=== PATIENT | male | born 1985 | race Caucasian/White ===

== ENCOUNTER 2018-09-26 16:04 | Emergency (ER) | payer OTHER ==
[2018-09-26] MEDS ORDERED: BUPIVACAINE 0.5% PF 10 ML VIAL ONE (17:45)
[2018-09-26] MEDS ORDERED: LIDOCAINE 1% 20 ML MDV ONE (17:45)
[2018-09-26] MEDS ORDERED: TETANUS & DIPHTHERIA TOX,ADULT 0.5 ML VIAL ONE (17:46)
--- NOTE | 2018-09-26 18:20 | RAD REPORT ---
EXAM DESCRIPTION: RAD - Hand Left 3 View - 09/26/2018 6:10 pm CLINICAL HISTORY: finger laceration COMPARISON: <Comparisons> FINDINGS: Soft tissue laceration is seen along the second digit radial aspect near the PIP joint. No fracture or radiopaque foreign body visualized.
--- NOTE | 2018-09-26 19:05 | ER ---
Nurse's Notes [facility] Name: Tavon Johansen Age: 33 yrs Sex: Male : 1985 Arrival Date: 09/26/2018 Time: 16:06 Bed 9 Private MD: Diagnosis: Laceration without foreign body of left index finger without damage to nail Presentation: 09/26 16:18 Presenting complaint: Laceration to left index finger with pocket knife yesterday, hb still bleeding today. Transition of care: patient was not received from another setting of care. Complicating Factors: There are no complicating factors for this patient. Onset of symptoms was September 25, 2018. Risk Assessment: Do you want to hurt yourself or someone else? Patient reports no desire to harm self or others. Care prior to arrival: None. 16:18 Method Of Arrival: Ambulatory hb 16:18 Acuity: TAYLOR 4 hb 19:43 Initial Sepsis Screen: Does the patient meet any 2 criteria? No. Patient's initial aj1 sepsis screen is negative. Does the patient have a suspected source of infection? Yes: Skin breakdown/wound. Historical: - Allergies: 16:20 No Known Allergies; hb - Home Meds: 16:20 None [Active]; hb - PSHx: 16:20 foot surgery; hb - Immunization history:: Last tetanus immunization: > 10 years ago. - Social history:: Smoking status: Patient/guardian denies using tobacco. - Ebola Screening: : No symptoms or risks identified at this time. Screenin:19 Abuse screen: Denies threats or abuse. Denies injuries from another. Nutritional aj1 screening: No deficits noted. Tuberculosis screening: No symptoms or risk factors identified. 19:44 Fall Risk None identified. aj1 Assessment: 17:16 General: Appears in no apparent distress. comfortable, Behavior is calm, cooperative, aj1 appropriate for age. Pain: Complains of pain in dorsal aspect of proximal phalanx of left index finger. Neuro: Level of Consciousness is awake, alert, obeys commands, Oriented to person, place, time, situation. Cardiovascular: Patient's skin is warm and dry. Respiratory: Airway is patent Respiratory effort is even, unlabored, Respiratory pattern is. GI: No signs and/or symptoms were reported involving the gastrointestinal system. : No signs and/or symptoms were reported regarding the genitourinary system. EENT: No signs and/or symptoms were reported regarding the EENT system. Derm: Skin is pink, warm \T\ dry. normal. Musculoskeletal: No signs and/or symptoms reported regarding the musculoskeletal system. Circulation, motion, and sensation intact. Range of motion: intact in all extremities. Injury Description: Laceration sustained to dorsal aspect of proximal phalanx of left index finger is bleeding moderately, was sustained 12-24 hours ago. 18:00 Reassessment: Patient's finger is soaking in betadine, awaiting to be numbed by 1 provider. 19:15 Reassessment: Patient appears in no apparent distress at this time. No changes from aj1 previously documented assessment. Patient and/or family updated on plan of care and expected duration. Pain level reassessed. Patient is alert, oriented x 3, equal unlabored respirations, skin warm/dry/pink. Vital Signs: 16:19 BP 171 / 97; Pulse 85; Resp 16; Temp 98.2; Pulse Ox 100% on R/A; Pain 0/10; hb ED Course: 16:06 Patient arrived in ED. as 16:12 Patient's name was called from ER lobby. No response. hb 16:19 Triage completed. hb 16:19 Arm band placed on. hb 16:58 Maren Rausch, MEY is Primary Nurse. aj1 17:00 Zaki Duffy PA is PHCP. cp 17:00 Tosha Culver MD is Attending Physician. cp 17:19 Patient has correct armband on for positive identification. Bed in low position. Call aj1 light in reach. Side rails up X 1. 17:19 No provider procedures requiring assistance completed. aj1 18:10 XRAY Hand LEFT 3 View In Process Unspecified. EDMS 19:40 Patient did not have IV access during this emergency room visit. Wound care: to aj1 laceration located on dorsal aspect of proximal phalanx of left index finger was cleaned with Hibiclens, dressed with 4X4s, secured with tape., Patient tolerated well. Administered Medications: 17:39 Drug: Tetanus-Diphtheria Toxoid Adult 0.5 ml {Emblem Drawer In: [employer]. Exp: aj1 08/25/2020. Lot #: [id number]. } Route: IM; Site: left deltoid; 18:23 Follow up: Response: No adverse reaction aj1 18:45 Drug: Lidocaine (1 %) 5 ml {Note: by PA. Jamison} Volume: 5 ml; Route: Infiltration; aj1 18:45 Drug: Marcaine (0.5 %) 5 ml {Note: by MUKUND Swift} Volume: 10 ml; Route: Infiltration;aj1 Outcome: 19:04 Discharge ordered by . autumn 19:44 Discharged to home ambulatory. aj1 19:44 Condition: good 19:44 Discharge instructions given to patient, Instructed on discharge instructions, follow up and referral plans. urine strainer, Demonstrated understanding of instructions, follow-up care, wound care. 19:44 Patient left the ED. aj1 Signatures: Dispatcher [employer] EDMaren Ibrahim, MEY RN aj1 Jacqueline Rankin Corey, PA PA cp Baxter, Heather, RN RN hb
--- NOTE | 2018-09-26 19:05 | EDPHYS ---
Physician Documentation [facility] Name: Tavon Johansen Age: 33 yrs Sex: Male : 1985 Arrival Date: 09/26/2018 Time: 16:06 Bed 9 Private MD: ED Physician Tosha Culver HPI: 09/26 17:25 This 33 yrs old Male presents to ER via Ambulatory with complaints of cp Laceration - Finger. 17:25 The patient or guardian reports a laceration, simple. cp 17:25 The complaints affect the proximal phalanx left index finger. Context: resulted from cp using knife. Onset: The symptoms/episode began/occurred today. Associated signs and symptoms: Pertinent negatives: cyanosis distally, numbness distally, decreased ROM. Historical: - Allergies: 16:20 No Known Allergies; hb - Home Meds: 16:20 None [Active]; hb - PSHx: 16:20 foot surgery; hb - Immunization history:: Last tetanus immunization: > 10 years ago. - Social history:: Smoking status: Patient/guardian denies using tobacco. - Ebola Screening: : No symptoms or risks identified at this time. ROS: 17:30 MS/extremity: Negative for decreased range of motion, deformity, paresthesias. cp 17:30 Skin: Positive for laceration(s), of the proximal phalanx left index finger, Negative for 17:30 All other systems are negative. Exam: 17:35 Head/Face: Normocephalic, atraumatic. cp 17:35 Constitutional: The patient appears in no acute distress, alert, awake, well developed, well nourished. 17:35 Musculoskeletal/extremity: ROM: full active range of motion, in the left index finger, Perfusion: the extremity is normally perfused throughout, Sensation intact. 17:35 Skin: injury, laceration(s), the wound is approximately 2 cm(s), of the proximal phalanx radial side left index finger, that can be described as no foreign body, linear, with mild bleeding. Vital Signs: 16:19 BP 171 / 97; Pulse 85; Resp 16; Temp 98.2; Pulse Ox 100% on R/A; Pain 0/10; hb Laceration: 18:59 Wound Repair of 2cm ( 0.8in ) subcutaneous laceration to proximal phalanx left index cp finger. Linear shaped.. Distal neuro/vascular/tendon intact. Anesthesia: Wound infiltrated with 2 mls of Lido/Marcaine. Wound prep: Moderate cleansing by me, Wound irrigation by me. Skin closed with 3 4-0 Prolene using interrupted sutures and sterile technique. Dressed with Bacitracin, tube gauze. Patient tolerated well. MDM: 17:00 Patient medically screened. cp 17:30 Differential diagnosis: open fracture, simple laceration, tendon laceration. cp 19:02 Test interpretation: by ED physician or midlevel provider: plain radiologic studies. cp 19:02 Response to treatment: the patient's symptoms have markedly improved after treatment, cp and as a result, I will discharge patient. 19:04 Data reviewed: vital signs, nurses notes, radiologic studies, plain films, and as a cp result, I will discharge patient. 09/26 17:17 Order name: XRAY Hand LEFT 3 View; Complete Time: 18:25 cp 09/26 18:25 Interpretation: Report reviewed. cp 09/26 17:17 Order name: Gloves, Sterile; Complete Time: 17:42 cp 09/26 17:17 Order name: Setup Suture Tray; Complete Time: 17:42 cp Administered Medications: 17:39 Drug: Tetanus-Diphtheria Toxoid Adult 0.5 ml {Irrigator: [employer]. Exp: aj1 08/25/2020. Lot #: [id number]. } Route: IM; Site: left deltoid; 18:23 Follow up: Response: No adverse reaction aj1 18:45 Drug: Lidocaine (1 %) 5 ml {Note: by René Duffy PA.} Volume: 5 ml; Route: Infiltration; aj1 18:45 Drug: Marcaine (0.5 %) 5 ml {Note: by René Duffy PA .} Volume: 10 ml; Route: Infiltration;aj1 Disposition: 20:00 Chart complete. cp 21:15 Co-signature as Attending Physician, Tosha Culver MD. ma2 Disposition: 09/26/18 19:04 Discharged to Home. Impression: Laceration without foreign body of left index finger without damage to nail. - Condition is Stable. - Discharge Instructions: Laceration Care, Adult. - Medication Reconciliation Form, Thank You Letter, Antibiotic Education, Prescription Opioid Use form. - Follow up: Private Physician; When: 10 - 14 days; Reason: Staple/Suture removal. - Problem is new. - Symptoms have improved. Signatures: Dispatcher [employer] EDMaren Ibrahim RN RN aj1 Zaki Duffy PA PA cp Baxter, Heather RN RN Tosha Culver MD MD ma2 Corrections: (The following items were deleted from the chart) 19:44 19:04 09/26/2018 19:04 Discharged to Home. Impression: Laceration without foreign body aj1 of left index finger without damage to nail. Condition is Stable. Forms are Medication Reconciliation Form, Thank You Letter, Antibiotic Education, Prescription Opioid Use. Follow up: Private Physician; When: 10 - 14 days; Reason: Staple/Suture removal. Problem is new. Symptoms have improved. cp
== END 2018-09-26 19:44 | disposition home or self-care (01) ==
LOC: ER 16:04
PROC: 0JQK0ZZ Repair Left Hand Subcutaneous Tissue and Fascia, Open Approach (ICD-10-PCS; principal; 2018-09-26)
DX: S61.211A Laceration without foreign body of left index finger without damage to nail, initial encounter (principal); W26.0XXA Contact with knife, initial encounter; Y93.9 Activity, unspecified; Y92.9 Unspecified place or not applicable; Z23 Encounter for immunization
CPT/HCPCS: 90714; 99283

== ENCOUNTER 2018-12-28 08:10 | Emergency (ER) | payer OTHER ==
[2018-12-28] MEDS ORDERED: DEXAMETHASONE 10 MG/ML VIAL ONE (09:24)
--- NOTE | 2018-12-28 09:44 | ER ---
Nurse's Notes [facility] Name: Tavon Johansen Age: 33 yrs Sex: Male : 1985 Arrival Date: 12/28/2018 Time: 08:11 Bed 12 Private MD: Diagnosis: Acute pharyngitis Presentation: 12/28 08:23 Presenting complaint: Patient states: "There really isn't any pain, but I noticed my ss throat was a little swollen this morning. It kind of started last night.". Transition of care: patient was not received from another setting of care. Onset of symptoms was December 28, 2018. Risk Assessment: Do you want to hurt yourself or someone else? Patient reports no desire to harm self or others. Initial Sepsis Screen: Does the patient meet any 2 criteria? No. Patient's initial sepsis screen is negative. Does the patient have a suspected source of infection? No. Patient's initial sepsis screen is negative. Care prior to arrival: None. 08:23 Method Of Arrival: Ambulatory ss 08:23 Acuity: TAYLOR 4 ss Historical: - Allergies: 08:26 No Known Allergies; ss - Home Meds: 08:26 None [Active]; ss - PMHx: 08:26 None; ss - PSHx: 08:26 None; ss - Immunization history:: Adult Immunizations up to date. - Social history:: Smoking status: Patient uses tobacco products, chewing tobacco. - Ebola Screening: : Patient denies exposure to infectious person Patient denies travel to an Ebola-affected area in the 21 days before illness onset. Screenin:23 Abuse screen: Denies threats or abuse. Denies injuries from another. Nutritional ss screening: No deficits noted. Tuberculosis screening: Never had TB. Fall Risk None identified. Assessment: 08:23 General: Appears in no apparent distress. comfortable, Behavior is calm, cooperative, ss Denies fever, feeling ill, fatigue, chills. Pain: Denies pain. Neuro: Level of Consciousness is awake, alert, obeys commands, Oriented to person, place, time, situation. Cardiovascular: Capillary refill < 3 seconds is brisk in bilateral fingers Patient's skin is warm and dry. Respiratory: Airway is patent Respiratory effort is even, unlabored, Respiratory pattern is regular, symmetrical, Breath sounds are clear bilaterally. GI: Patient currently denies abdominal pain, diarrhea, nausea, vomiting. : No signs and/or symptoms were reported regarding the genitourinary system. EENT: Nares are clear Oral mucosa is moist. Throat tonsil on R appears reddened and mildly inflammed. Derm: Skin is intact, is healthy with good turgor, Skin is dry, Skin is pink, warm \\T\\ dry. normal. Musculoskeletal: Circulation, motion, and sensation intact. Range of motion: intact in all extremities. Vital Signs: 08:26 BP 132 / 79; Pulse 90; Resp 16; Temp 97.4(TE); Pulse Ox 100% on R/A; Weight 86.18 kg; ss Height 5 ft. 8 in. (172.72 cm); Pain 0/10; 08:26 Body Mass Index 28.89 (86.18 kg, 172.72 cm) ED Course: 08:11 Patient arrived in ED. as 08:23 Patient has correct armband on for positive identification. Bed in low position. Call light in reach. 08:25 Triage completed. 08:26 Arm band placed on right wrist. 08:33 Bladimir Cleveland NP is PHCP. pm1 08:33 Narayan Virgen MD is Attending Physician. pm1 09:05 Kelly Key RN is Primary Nurse. 09:06 Strep swab sent to lab. 3 09:40 No provider procedures requiring assistance completed. Patient did not have IV access ss during this emergency room visit. Administered Medications: 09:10 Drug: Decadron 10 mg Route: IM; Site: right deltoid; 09:45 Follow up: Response: No adverse reaction Outcome: 09:39 Discharge ordered by . pm1 09:45 Discharged to home ambulatory. 09:45 Condition: good 09:45 Discharge instructions given to patient, Instructed on discharge instructions, follow up and referral plans. Demonstrated understanding of instructions, follow-up care, medications. 09:46 Patient left the ED. Signatures: Jacqueline Rankin Shelby, RN RN Bladimir Cleveland NP ELECTROTYPER pm1 Janay Feng 3 Corrections: (The following items were deleted from the chart) 09:39 08:23 EENT: Nares are clear Oral mucosa is moist. Throat is clear [facility]
--- NOTE | 2018-12-28 09:46 | EDPHYS ---
Physician Documentation [facility] Name: Tavon Johansen Age: 33 yrs Sex: Male : 1985 Arrival Date: 12/28/2018 Time: 08:11 Bed 12 Private MD: ED Physician Narayan Virgen HPI: 12/28 08:58 This 33 yrs old Male presents to ER via Ambulatory with complaints of Sore pm1 Throat - swelling. 08:58 The patient presents with sore throat. The patient describes throat pain as scratchy. pm1 Onset: The symptoms/episode began/occurred last night. Severity of symptoms: in the emergency department the symptoms are actually worse. Modifying factors: The symptoms are alleviated by nothing, the symptoms are aggravated by swallowing, Patient's oral intake status: good unaware of sick contact. Associated signs and symptoms: Pertinent negatives cough, earache, fever, nausea, vomiting. The patient has not recently seen a physician. Historical: - Allergies: 08:26 No Known Allergies; ss - Home Meds: 08:26 None [Active]; ss - PMHx: 08:26 None; ss - PSHx: 08:26 None; ss - Immunization history:: Adult Immunizations up to date. - Social history:: Smoking status: Patient uses tobacco products, chewing tobacco. - Ebola Screening: : Patient denies exposure to infectious person Patient denies travel to an Ebola-affected area in the 21 days before illness onset. ROS: 08:58 Constitutional: Negative for fever, chills, and weight loss, Eyes: Negative for injury, pm1 pain, redness, and discharge. 08:58 Neck: Negative for injury, pain, and swelling, Cardiovascular: Negative for chest pain, palpitations, and edema, Respiratory: Negative for shortness of breath, cough, wheezing, and pleuritic chest pain, Abdomen/GI: Negative for abdominal pain, nausea, vomiting, diarrhea, and constipation, Back: Negative for injury and pain, MS/Extremity: Negative for injury and deformity, Skin: Negative for injury, rash, and discoloration, Neuro: Negative for headache, weakness, numbness, tingling, and seizure. 08:58 ENT: Positive for sore throat, Negative for ear pain, rhinorrhea, difficulty swallowing, difficulty handling secretions, hoarseness. Exam: 08:58 Constitutional: This is a well developed, well nourished patient who is awake, alert, pm1 and in no acute distress. Head/Face: Normocephalic, atraumatic. Eyes: Pupils equal round and reactive to light, extra-ocular motions intact. Lids and lashes normal. Conjunctiva and sclera are non-icteric and not injected. Cornea within normal limits. Periorbital areas with no swelling, redness, or edema. 08:58 Neck: Trachea midline, no thyromegaly or masses palpated, and no cervical lymphadenopathy. Supple, full range of motion without nuchal rigidity, or vertebral point tenderness. No Meningismus. Chest/axilla: Normal chest wall appearance and motion. Nontender with no deformity. No lesions are appreciated. Cardiovascular: Regular rate and rhythm with a normal S1 and S2. No gallops, murmurs, or rubs. Normal PMI, no JVD. No pulse deficits. Respiratory: Lungs have equal breath sounds bilaterally, clear to auscultation and percussion. No rales, rhonchi or wheezes noted. No increased work of breathing, no retractions or nasal flaring. Abdomen/GI: Soft, non-tender, with normal bowel sounds. No distension or tympany. No guarding or rebound. No evidence of tenderness throughout. Back: No spinal tenderness. No costovertebral tenderness. Full range of motion. Skin: Warm, dry with normal turgor. Normal color with no rashes, no lesions, and no evidence of cellulitis. MS/ Extremity: Pulses equal, no cyanosis. Neurovascular intact. Full, normal range of motion. 08:58 ENT: External ear(s): are unremarkable, Ear canal(s): are normal, TM's: are normal, Nose: is normal, Mouth: is normal, Posterior pharynx: Airway: no evidence of obstruction, Tonsils: enlarged on the right, with erythema, no exudate, no ulcerations, Uvula: midline, non-edematous, no erythema, erythema, that is mild, exudate, is not appreciated, peritonsillar mass, is not appreciated, pooling of secretions, is not appreciated. 08:58 Neuro: Orientation: is normal, Motor: is normal, moves all fours. Vital Signs: 08:26 BP 132 / 79; Pulse 90; Resp 16; Temp 97.4(TE); Pulse Ox 100% on R/A; Weight 86.18 kg; ss Height 5 ft. 8 in. (172.72 cm); Pain 0/10; 08:26 Body Mass Index 28.89 (86.18 kg, 172.72 cm) ss MDM: 08:54 Patient medically screened. pm1 09:00 Data reviewed: vital signs. Data interpreted: Pulse oximetry: on room air is 100 %. pm1 Interpretation: normal. 09:38 Counseling: I had a detailed discussion with the patient and/or guardian regarding: the pm1 historical points, exam findings, and any diagnostic results supporting the discharge/admit diagnosis, lab results, the need for outpatient follow up, to return to the emergency department if symptoms worsen or persist or if there are any questions or concerns that arise at home. 12/28 08:57 Order name: Strep; Complete Time: 09:38 pm1 12/28 09:40 Order name: Throat Culture EDMS Administered Medications: 09:10 Drug: Decadron 10 mg Route: IM; Site: right deltoid; ss 09:45 Follow up: Response: No adverse reaction ss Disposition: 14:15 Co-signature as Attending Physician, Narayan Virgen MD I agree with the assessment and kdr plan of care. Disposition: 12/28/18 09:39 Discharged to Home. Impression: Acute pharyngitis. - Condition is Stable. - Discharge Instructions: Pharyngitis. - Medication Reconciliation Form, Thank You Letter, Antibiotic Education, Prescription Opioid Use form. - Follow up: Emergency Department; When: As needed; Reason: Worsening of condition. Follow up: Private Physician; When: 2 - 3 days; Reason: Recheck today's complaints, Continuance of care, Re-evaluation by your physician. - Problem is new. - Symptoms have improved. Signatures: Dispatcher [employer] EDMS Narayan Virgen MD MD [facility] Kelly Key RN RN ss Bladimir Cleveland NP [employer]T CHANGER pm1 Corrections: (The following items were deleted from the chart) 09:46 09:39 12/28/2018 09:39 Discharged to Home. Impression: Acute pharyngitis. Condition is ss Stable. Forms are Medication Reconciliation Form, Thank You Letter, Antibiotic Education, Prescription Opioid Use. Follow up: Emergency Department; When: As needed; Reason: Worsening of condition. Follow up: Private Physician; When: 2 - 3 days; Reason: Recheck today's complaints, Continuance of care, Re-evaluation by your physician. Problem is new. Symptoms have improved. pm1
== END 2018-12-28 09:46 | disposition home or self-care (01) ==
LOC: ER 08:10
DX: J02.9 Acute pharyngitis, unspecified (principal); Z72.0 Tobacco use
CPT/HCPCS: 87070; 87081; 96372; 99283; J1100